=== PATIENT | male | born 1985 | race Asian ===

== ENCOUNTER 2020-11-10 10:19 | Emergency (ER) | payer BC ==
[~2020-11-10] VITALS: Ht 188 cm; Wt 94.6 kg
[2020-11-10] MEDS ORDERED: AMOXICILLIN/CLAVULANATE K 875 MG TAB PO STA (10:43)
[2020-11-10] MEDS ORDERED: IBUPROFEN 600 MG TAB PO STA (10:43)
[2020-11-10] MEDS ORDERED: SODIUM CHLORIDE 0.9% 1000ML 1,000 ML ONE (11:14)
[2020-11-10] MEDS ORDERED: ONDANSETRON HCL INJ 2MG/ML 2ML 2 MG/ML VIAL ONE (11:14)
[2020-11-10] MEDS ORDERED: FAMOTIDINE 20 MG/2 ML VIAL IV STA (11:29)
[2020-11-10] MEDS ORDERED: ONDANSETRON HCL INJ 2MG/ML 2ML 2 MG/ML VIAL IV STA (11:29)
[2020-11-10] MEDS ORDERED: SODIUM CHLORIDE 0.9% 1000ML 1,000 ML IV SCH (11:30)
[2020-11-10] MEDS ORDERED: KETOROLAC TROMETHAMINE 30 MG/ML VIAL IV STA (11:34)
[2020-11-10] MEDS ORDERED: KETOROLAC TROMETHAMINE 30 MG/ML VIAL ONE (11:49)
[2020-11-10] MEDS ORDERED: FAMOTIDINE 20 MG/2 ML VIAL IV ONE (11:49)
[2020-11-10] MEDS ORDERED: DEXAMETHASONE SOD PHOS 10 MG/1 ML VIAL IV ONE (13:15)
[2020-11-10] MEDS ORDERED: DEXAMETHASONE SOD PHOS INJ 4 MG/ML VIAL ONE (13:47)
[2020-11-10] MEDS ORDERED: SODIUM CHLORIDE 0.9% 50ML 50 ML ONE (13:47)
[2020-11-10] MEDS ORDERED: CEFTRIAXONE 1 GM VIAL ONE (13:48)
[2020-11-10] MEDS ORDERED: SODIUM CHLORIDE 0.9% 250ML 250 ML ONE (13:48)
[2020-11-10] MEDS ORDERED: AZITHROMYCIN250 MG PO (13:51)
[2020-11-10] MEDS ORDERED: DEXAMETHASONE6 MG PO (13:52)
[2020-11-10] MEDS ORDERED: ONDANSETRON ODT4 MG PO (13:53)
[2020-11-10] MEDS ORDERED: FAMOTIDINE40 MG PO (13:54)
[2020-11-10] MEDS ORDERED: IBUPROFEN600 MG PO (13:58)
[2020-11-10] MEDS ORDERED: CEFTRIAXONE 1 GM in SODIUM CHLORIDE 0.9% 50ML 50 ML IV SCH (14:00)
== END 2020-11-10 14:59 | disposition home or self-care (01) ==
LOC: FSED 10:36
DX: U07.1 COVID-19 (principal); J12.82 Pneumonia due to coronavirus disease 2019; R11.2 Nausea with vomiting, unspecified; E86.0 Dehydration; R53.1 Weakness; K57.30 Diverticulosis of large intestine without perforation or abscess without bleeding
CPT/HCPCS: 71250; 74176; 80053; 81003; 85025; 96374; 96375; 99284; J0456; J0696; J1100 ×2; J1885; J2405; J7030; J7050